=== PATIENT | female | born 1980 | race Caucasian/White ===

== ENCOUNTER 2019-08-16 02:43 | Emergency (ER) | payer SELFPAY ==
[~2019-08-16] VITALS: Ht 165.1 cm; Wt 63.6 kg
[2019-08-16 03:22] LABS: ARTERIAL BLD GAS O2 SATURATION 96.6 % (92-100); ARTERIAL BLD GAS TCO2 CT 17.5; ARTERIAL BLOOD GAS BASE EXCESS -7.7 (-2-2); ARTERIAL BLOOD GAS HCO3 16.6 meq/L (22-26); ARTERIAL BLOOD GAS PCO2 29.5 mmHg (35-45); ARTERIAL BLOOD GAS PO2 97.2 mmHg (80-100); ARTERIAL BLOOD GAS pH 7.37 (7.35-7.45)
[2019-08-16 03:23] LABS: BASO % 0.6 % (0.0-2.0); EOS % 1.2 % (0-4.0); GRAN # 1.6 (1.4-6.5); GRAN % 46.1 % (42.2-75.2); HEMATOCRIT 31.2 % (37.0-47.0); HEMOGLOBIN 9.1 g/dl (12.5-16.0); LYMPH # 1.4 (1.2-3.4); LYMPH % 41.5 % (20.0-51.0); MEAN CELL VOLUME 69 fl (80.0-100.0); MEAN CORPUSCULAR HEMOGLOBIN 20 pg (27.0-31.0); MEAN CORPUSCULAR HGB CONC 29 g/dl (33.0-37.0); MEAN PLATELET VOLUME 9.2 fl (7.4-10.4); MONO # 0.4 (0.1-0.6); MONO % 10.3 % (1.7-9.3); PLATELET COUNT 351 K/mm3 (130-400); RED BLOOD COUNT 4.53 M/mm3 (4.10-5.30); REDCELL DISTRIBUTION WIDTH-CV 17.5 % (11.5-14.5)
[2019-08-16 03:33] LABS: ALANINE AMINOTRANSFERASE 39 U/L (4-34); ALBUMIN 4.6 gm/dL (3.5-5.0); ALCOHOL(ethanol),MEDICAL 162 mg/dL; ALKALINE PHOSPHATASE 82 U/L (50-136); ANION GAP 12 mmol/L (7-16); AST,SGOT 62 U/L (15-37); BILIRUBIN,TOTAL 0.3 mg/dL (0.0-1.0); BLOOD UREA NITROGEN 8 mg/dL (7-17); CALCIUM 9.2 mg/dL (8.4-10.2); CARBON DIOXIDE 20 mmol/L (22-30); CHLORIDE 106 mmol/L (98-107); CREATININE, serum 0.47 (0.52-1.25); GLUCOSE 393 mg/dL (74-106); LIPASE 53 U/L (23-300); POTASSIUM 3.9 mmol/L (3.4-5.0); SODIUM 138 mmol/L (137-145); TOTAL PROTEIN 8.3 gm/dL (6.4-8.2)
[2019-08-16 03:38] LABS: ACETONE,SERUM NEGATIVE
[2019-08-16] MEDS ORDERED: LANTUS100 U/ML SQ (03:39)
[2019-08-16 06:20] VITALS: TEMP 98.3
[2019-08-16 06:20] LABS: TRICYCLIC ANTIDEPRESS URINE NEGATIVE
[2019-08-16 06:52] VITALS: BP 111/75; PULSE 81
== END 2019-08-16 06:53 | disposition home or self-care (01) ==
LOC: COL.ER 02:43 → EDBD 02:45 → COL.ER 06:53
PROVIDERS: Emergency Medicine
DX: E11.65 Type 2 diabetes mellitus with hyperglycemia (principal); F10.129 Alcohol abuse with intoxication, unspecified; R41.82 Altered mental status, unspecified; Y90.6 Blood alcohol level of 120-199 mg/100 ml
CPT/HCPCS: J7030